=== PATIENT | female | born 1970 | race Caucasian/White ===

== ENCOUNTER → 2020-03-13 | Outpatient (CLI) | payer OTHER ==
--- NOTE | 2020-03-13 16:17 | RAD ---
Two-view lumbar spine dated 03/13/2020. No comparison available. Clinical data indication: Pain. FINDINGS: 2 views lumbar spine show straightening of the normal lumbar lordosis. Sagittal alignment is otherwise anatomic. Vertebral body heights are maintained. Mild endplate hypertrophic changes throughout. Mild/moderate arthrosis lower lumbar apophyseal joints. IMPRESSION: 1. No acute radiographic abnormality. 2. Mild multilevel spondylosis. Electronically signed by: Dale Lawson MD (03/13/2020 4:14 PM) BRITTNI
--- NOTE | 2020-03-13 16:28 | RAD ---
HIP RIGHT 2 VIEW DATE: 03/13/2020 12:00 AM INDICATION: BACK AND RIGHT HIP PAIN. FIBROMYALGIA. ARTHRITIS COMPARISON: None. FINDINGS: Bones: There is no evidence of acute fracture or dislocation. Joints: The joint spaces are normal. Miscellaneous: None. IMPRESSION: Normal exam Electronically signed by: Paul Brock MD (03/13/2020 4:25 PM) [id number]
== END | disposition home or self-care (01) ==
LOC: RAD 14:03
PROVIDERS: ATTEND Surgery
DX: M47.816 Spondylosis without myelopathy or radiculopathy, lumbar region (principal); M25.551 Pain in right hip
CPT/HCPCS: 72100; 73502